=== PATIENT | female | born 1945 | race Caucasian/White ===

== ENCOUNTER 2021-07-23 06:24 | Inpatient (IN) | payer OTHER ==
[~2021-07-23 06:24] MED LIST: GLIMEPIRIDE1 M1 PO; NORVASC5 MG PO; PEPCID AC10 MG PO; TOPROL XL25 M1 PO
== END 2021-07-24 13:39 | disposition home or self-care (01) | DRG 627 ==
LOC: CIR.AMB 06:24 → O/R 14:42 → SURH 14:42
PROVIDERS: ADMIT Surgery; ATTEND Surgery
PROC: 0GBG0ZX Excision of Left Thyroid Gland Lobe, Open Approach, Diagnostic (ICD-10-PCS; principal; 2021-07-23 08:30)
DX: C73 Malignant neoplasm of thyroid gland (principal)

== ENCOUNTER → 2021-07-23 07:19 | Outpatient (CLI) | payer OTHER | END | disposition home or self-care (01) | LOC: LAB 07:19 | PROVIDERS: ATTEND Surgery | DX: Z03.818 Encounter for observation for suspected exposure to other biological agents ruled out (principal) ==